=== PATIENT | male | born 1970 | race Caucasian/White ===

== ENCOUNTER 2023-09-12 09:39 | Emergency (ER) | payer BC ==
[2023-09-12 09:58] VITALS: TEMP 97.8
--- NOTE | 2023-09-12 10:20 | ERPHSYRPT ---
- History of Present Illness Time Seen by Provider: 09/12/23 10:20 Historian: patient Exam Limitations: no limitations Patient Subjective Stated Complaint: "nausea and vomiting since wednesday am" Triage Nursing Assessment: AAox3, walked in, c/o vomiting and "mostly diarrhea for 2 days. Unable to take home meds, eat or drink d/t vomitng. Denies pain. Physician History: The patient presents with a sudden onset of gastrointestinal symptoms since Wednesday, including vomiting and diarrhea. The patient is unable to quantify the number of episodes per day, but describes it as too much. There has been no blood in the vomit or diarrhea, and the patient denies any abdominal pain. The patient has been experiencing muscle cramps and has not been able to eat much, only consuming four saltine crackers the day before. The patient has not been taking any new medications and denies any recent upper respiratory symptoms or burning sensation during urination. The symptoms appeared suddenly and have not improved since their onset. The patient has a history of heart issues, blood pressure, cholesterol, anxiety, and heartburn. However, they have not taken any medications for these conditions since Wednesday. The patient is unsure if their heartburn has worsened due to the vomiting, as they have not been able to eat much. The patient's blood pressure appears to be stable at the time of the visit. He denies fever, chills, abd p ain, CP, SOB or swelling. Timing/Duration: day(s) (2) Activities at Onset: rest Pain Radiation: no radiation Severity of Pain-Max: none Severity of Pain-Current: none Modifying Factors: Improves With: nothing Associated Symptoms: diaphoresis, diarrhea, heartburn, loss of appetite, nausea, vomiting, No chest pain, No fever/chills, No neck pain, No shortness of breath Previous symptoms: no prior history Allergies/Adverse Reactions: No Known Drug Allergies Allergy (Unverified 09/12/23 10:28) Home Medications: Duloxetine HCl 30 mg [Cymbalta 30 MG Capsule] 60 mg PO DAILY 09/12/23 [History] Icosapent Ethyl [Vascepa] 2 gm PO BID 09/12/23 [History] Isosorbide Mononitrate 30 mg [Imdur 30 MG] 30 mg PO DAILY 09/12/23 [History] Lisinopril/Hydrochlorothiazide [Lisinopril-Hctz 20-12.5 mg Tab] 1 tab PO DAILY 09/12/23 [History] Metoprolol Succinate 25 mg Xl* [Toprol-Xl 25MG Tablets] 25 mg PO DAILY 09/12/23 [History] Omeprazole/Sodium Bicarbonate [Omeprazole-Bicarb 40-1,100 Cap] 40 mg PO DAILY 09/12/23 [History] Pravastatin Sodium 20 mg PO DAILY 09/12/23 [History] Hx Tetanus, Diphtheria Vaccination/Date Given: No Hx Influenza Vaccination/Date Given: No Travel Risk - International Travel Have you traveled outside of the country in past 3 weeks: No - Coronavirus Screening Symptoms: Vomiting/Diarrhea Close contact with a COVID-19 positive Pt in past 14-21 Days: No - Vaccine Status Have you recieved a Covid-19 vaccination: Yes Industrial [employer]: [employer] - Vaccination Dates Date of 2cond Vaccination (if applicable): 2020 - Review of Systems All Other Systems: Reviewed and Negative (As per HPI) - Past Medical History Pertinent Past Medical History: Yes Neurological History: No Pertinent History ENT History: No Pertinent History Cardiac History: High Cholesterol, Hypertension Respiratory History: No Pertinent History Endocrine Medical History: No Pertinent History Musculoskeletal History: No Pertinent History GI Medical History: GERD History: No Pertinent History Psycho-Social History: Anxiety Male Reproductive Disorders: No Pertinent History - Past Surgical History Past Surgical History: No Cardiac: No Pertinent History Respiratory: No Pertinent History Gastrointestinal: No Pertinent History Genitourinary: No Pertinent History Musculoskeletal: No Pertinent History Male Surgical History: No Pertinent History - Social History Smoking Status: Never smoker Drug Use: none Patient Lives Alone: Yes - Nursing Vital Signs Nursing Vital Signs: Initial Vital Signs Temperature 97.8 F 09/12/23 09:47 Pulse Rate 130 H 09/12/23 09:47 Respiratory Rate 20 09/12/23 09:47 Blood Pressure 92/78 09/12/23 09:47 O2 Sat by Pulse Oximetry 96 09/12/23 09:47 Pain Scale Pain Intensity 0 - Physical Exam General Appearance: no apparent distress, obese Eye Exam: eyes nml inspection Ears, Nose, Throat Exam: normal ENT inspection Neck Exam: normal inspection, supple, full range of motion Respiratory Exam: airway intact, No respiratory distress Cardiovascular Exam: tachycardia, capillary refill <2 sec, No edema Gastrointestinal/Abdomen Exam: soft, normal bowel sounds, No tenderness, No distention, No guarding, No rebound Extremity Exam: normal inspection, No swelling, No tenderness Neurologic Exam: alert, oriented x 3, cooperative Skin Exam: normal color, warm, dry, No rash SpO2 Interpretation: normal SpO2: 96 O2 Delivery: Room Air - Course Nursing assessment & vital signs reviewed: Yes EKG Interpreted by Me: RATE (114), Sinus Tach, prolonged QT interval (592), Other (No specific ST changes) - CT Exams Abdomen/Pelvis CT Interpretation: Tele-radiologist Report (No urolithiasis, cecum and ascending colon show signs of mild colitis, fatty liver, right basal calcified nodule likely old granuloma, gastric fundus thickening) Ordered Tests: Medication Summary Discontinued Medications Generic Name Dose Route Start Last Admin Trade Name Freq PRN Reason Stop Dose Admin Duloxetine HCl 30 mg 09/13/23 11:07 09/12/23 11:21 Duloxetine Hcl 30 Mg Cap PO 09/13/23 11:08 30 mg ONCE ONE Administration Sodium Chloride 1,000 mls @ 999 mls/hr 09/12/23 10:25 09/12/23 11:40 Sodium Chloride 0.9% 1000 Ml IV 09/12/23 11:25 Infused .Q1H1M STA Infusion Sodium Chloride Confirm 09/12/23 10:30 Sodium Chloride 0.9% 1000 Ml Administered 09/12/23 10:31 Dose 1,000 mls @ ud .ROUTE .STK-MED ONE Sodium Chloride 100 mls @ 100 mls/hr 09/12/23 10:52 09/12/23 11:41 Sodium Chloride 0.9% IV 09/12/23 11:51 Not Given .Q1H ONE Sodium Chloride 1,000 mls @ 999 mls/hr 09/12/23 10:56 09/12/23 12:45 Sodium Chloride 0.9% 1000 Ml IV 09/12/23 11:56 Infused .Q1H1M STA Infusion Sodium Chloride Confirm 09/12/23 11:05 Sodium Chloride 0.9% 1000 Ml Administered 09/12/23 11:06 Dose 1,000 mls @ ud .ROUTE .STK-MED ONE Sodium Chloride 1,000 mls @ 150 mls/hr 09/12/23 13:00 09/12/23 12:49 Sodium Chloride 0.9% 1000 Ml IV 10/12/23 12:59 150 mls/hr .Q6H40M TERI Administration Ceftriaxone Sodium/Dextrose 2 g in 50 mls @ 100 mls/hr 09/12/23 13:10 09/12/23 13:19 Rocephin 2 Gm-D5w 50ml Bag IV 09/12/23 13:39 100 mls/hr STAT STA 100 mls/hr Administration Ceftriaxone Sodium/Dextrose Confirm 09/12/23 13:18 Rocephin 2 Gm-D5w 50ml Bag Administered 09/12/23 13:19 Dose 2 g in 50 mls @ ud IV .STK-MED ONE Sodium Chloride Confirm 09/12/23 12:48 Sodium Chloride 0.9% 1000 Ml Administered 09/12/23 12:49 Dose 1,000 mls @ ud .ROUTE .STK-MED ONE Metoprolol Succinate 25 mg 09/13/23 11:07 09/12/23 11:21 Metoprolol Succinate 25 Mg Xl Tab PO 09/13/23 11:08 25 mg ONCE ONE Administration Metoprolol Succinate Confirm 09/12/23 11:09 Metoprolol Succinate 25 Mg Xl Tab Administered 09/12/23 11:10 Dose 25 mg .ROUTE .STK-MED ONE Ondansetron HCl 4 mg 09/12/23 10:25 09/12/23 10:32 Ondansetron Hcl 4 Mg/2 Ml Vial IV 09/12/23 10:26 4 mg STAT ONE Administration Ondansetron HCl Confirm 09/12/23 10:29 Ondansetron Hcl 4 Mg/2 Ml Vial Administered 09/12/23 10:30 Dose 4 mg .ROUTE .STK-MED ONE Pantoprazole Sodium 40 mg 09/12/23 10:26 09/12/23 10:32 Pantoprazole 40 Mg Vial IV 09/12/23 10:27 40 mg STAT ONE Administration Pantoprazole Sodium Confirm 09/12/23 10:30 Pantoprazole 40 Mg Vial Administered 09/12/23 10:31 Dose 40 mg IV .STK-MED ONE Lab/Rad Data: Laboratory Result Diagrams 09/12/23 10:30 09/12/23 10:30 Laboratory Results 10/29/23 10/29/23 10/29/23 Range/Units 12:54 12:09 10:45 WBC (4.0-10.5) x10^3/uL RBC (4.1-5.6) x10^6/uL Hgb (12.5-18.0) g/dL Hct (42-50) % MCV (78-100) fL MCH (26-32) pg MCHC (32-36) g/dL RDW (11.5-14.0) % Plt Count (150-450) x10^3/uL MPV (7.5-11.0) fL Segmented Neutrophils (36.-66.) % Band Neutrophils (0.0-2.0) % Lymphocytes (Manual) (24-44) % Monocytes (Manual) (0.0-12.0) % Metamyelocytes % Platelet Estimate (NORMAL) RBC Morphology pO2/FiO2 Ratio 21.0 % VBG pH 7.29 L (7.32-7.42) VBG pCO2 at Pat Temp 38 L (42-55) mm/Hg VBG pO2 at Pat Temp 26 (25-40) mm/Hg VBG HCO3 18.3 L (22-28) meq/L VBG O2 Sat (Nikki) 38.3 L (95-100) VBG Base Excess -7.6 L (-2.0-2.0) VBG Hemoglobin 16.9 VBG Carboxyhemoglobin 2.0 (0.0-6.9) % T HGB POC Potassium 3.6 (3.5-5.1) Sodium (137-145) mmol/L Potassium (3.5-5.1) mmol/L Chloride (98-107) mmol/L Carbon Dioxide (22-30) mmol/L Anion Gap (5-15) MEQ/L BUN (9-20) mg/dL Creatinine (0.66-1.25) mg/dL Estimated GFR ML/MIN Glucose (74-106) mg/dL Hemoglobin A1c (4.5-6.0) % Lactic Acid 2.8 H (0.4-2.0) Calcium (8.4-10.2) mg/dL Phosphorus (2.5-4.5) mg/dL Magnesium (1.6-2.3) mg/dL Total Bilirubin (0.2-1.3) mg/dL AST (17-59) U/L ALT (0-50) U/L Alkaline Phosphatase (38-126) U/L Serum Total Protein (6.3-8.2) g/dL Albumin (3.5-5.0) g/dL Lipase (23-300) U/L Urine Color Dark Yellow (Yellow) Urine Appearance Turbid A (Clear) Urine pH 5.0 (4.6-8.0) Ur Specific [place] 1.025 (1.005-1.030) Urine Protein 100 A (Negative) Urine Glucose (UA) 100 A (Negative) mg/dL Urine Ketones Trace A (Negative) Urine Blood Moderate A (Negative) Urine Nitrite Negative (Negative) Urine Bilirubin Moderate A (Negative) Urine Urobilinogen 1.0 A (0.2) mg/dL Ur Leukocyte Esterase Trace A (Negative) U Hyaline Cast (Auto) None Seen (0-2) /LPF Urine Microscopic RBC 0-2 (0-5) /HPF Urine Microscopic WBC 3-5 (0-5) /HPF Ur Epithelial Cells Few (None Seen) /HPF Urine Bacteria Many A (None Seen) /HPF Urine Culture Reflexed YES (NO) Influenza Type A Ag (NEGATIVE) Influenza Type B Ag (NEGATIVE) RSV (PCR) (NEGATIVE) SARS-CoV-2 (PCR) (NEGATIVE) 09/12/23 09/12/23 09/12/23 Range/Units 10:45 10:35 10:30 WBC (4.0-10.5) x10^3/uL RBC (4.1-5.6) x10^6/uL Hgb (12.5-18.0) g/dL Hct (42-50) % MCV (78-100) fL MCH (26-32) pg MCHC (32-36) g/dL RDW (11.5-14.0) % Plt Count (150-450) x10^3/uL MPV (7.5-11.0) fL Segmented Neutrophils (36.-66.) % Band Neutrophils (0.0-2.0) % Lymphocytes (Manual) (24-44) % Monocytes (Manual) (0.0-12.0) % Metamyelocytes % Platelet Estimate (NORMAL) RBC Morphology pO2/FiO2 Ratio % VBG pH (7.32-7.42) VBG pCO2 at Pat Temp (42-55) mm/Hg VBG pO2 at Pat Temp (25-40) mm/Hg VBG HCO3 (22-28) meq/L VBG O2 Sat (Nikki) (95-100) VBG Base Excess (-2.0-2.0) VBG Hemoglobin VBG Carboxyhemoglobin (0.0-6.9) % T HGB POC Potassium (3.5-5.1) Sodium (137-145) mmol/L Potassium (3.5-5.1) mmol/L Chloride (98-107) mmol/L Carbon Dioxide (22-30) mmol/L Anion Gap (5-15) MEQ/L BUN (9-20) mg/dL Creatinine (0.66-1.25) mg/dL Estimated GFR ML/MIN Glucose (74-106) mg/dL Hemoglobin A1c (4.5-6.0) % Lactic Acid 4.8 H (0.4-2.0) Calcium (8.4-10.2) mg/dL Phosphorus 11.7 H (2.5-4.5) mg/dL Magnesium (1.6-2.3) mg/dL Total Bilirubin (0.2-1.3) mg/dL AST (17-59) U/L ALT (0-50) U/L Alkaline Phosphatase (38-126) U/L Serum Total Protein (6.3-8.2) g/dL Albumin (3.5-5.0) g/dL Lipase (23-300) U/L Urine Color (Yellow) Urine Appearance (Clear) Urine pH (4.6-8.0) Ur Specific [place] (1.005-1.030) Urine Protein (Negative) Urine Glucose (UA) (Negative) mg/dL Urine Ketones (Negative) Urine Blood (Negative) Urine Nitrite (Negative) Urine Bilirubin (Negative) Urine Urobilinogen (0.2) mg/dL Ur Leukocyte Esterase (Negative) U Hyaline Cast (Auto) (0-2) /LPF Urine Microscopic RBC (0-5) /HPF Urine Microscopic WBC (0-5) /HPF Ur Epithelial Cells (None Seen) /HPF Urine Bacteria (None Seen) /HPF Urine Culture Reflexed (NO) Influenza Type A Ag NEGATIVE (NEGATIVE) Influenza Type B Ag NEGATIVE (NEGATIVE) RSV (PCR) NEGATIVE (NEGATIVE) SARS-CoV-2 (PCR) NEGATIVE (NEGATIVE) 09/12/23 09/12/23 09/12/23 Range/Units 10:30 10:30 10:30 WBC (4.0-10.5) x10^3/uL RBC (4.1-5.6) x10^6/uL Hgb (12.5-18.0) g/dL Hct (42-50) % MCV (78-100) fL MCH (26-32) pg MCHC (32-36) g/dL RDW (11.5-14.0) % Plt Count (150-450) x10^3/uL MPV (7.5-11.0) fL Segmented Neutrophils (36.-66.) % Band Neutrophils (0.0-2.0) % Lymphocytes (Manual) (24-44) % Monocytes (Manual) (0.0-12.0) % Metamyelocytes % Platelet Estimate (NORMAL) RBC Morphology pO2/FiO2 Ratio % VBG pH (7.32-7.42) VBG pCO2 at Pat Temp (42-55) mm/Hg VBG pO2 at Pat Temp (25-40) mm/Hg VBG HCO3 (22-28) meq/L VBG O2 Sat (Nikki) (95-100) VBG Base Excess (-2.0-2.0) VBG Hemoglobin VBG Carboxyhemoglobin (0.0-6.9) % T HGB POC Potassium (3.5-5.1) Sodium 132 L (137-145) mmol/L Potassium 3.6 (3.5-5.1) mmol/L Chloride 86 L (98-107) mmol/L Carbon Dioxide 14 L* (22-30) mmol/L Anion Gap 36.2 H (5-15) MEQ/L BUN 58 H (9-20) mg/dL Creatinine 7.44 H (0.66-1.25) mg/dL Estimated GFR 8.1 ML/MIN Glucose 191 H (74-106) mg/dL Hemoglobin A1c 6.09 H (4.5-6.0) % Lactic Acid (0.4-2.0) Calcium 9.6 (8.4-10.2) mg/dL Phosphorus (2.5-4.5) mg/dL Magnesium 1.5 L (1.6-2.3) mg/dL Total Bilirubin 1.10 (0.2-1.3) mg/dL AST 68 H (17-59) U/L ALT 45 (0-50) U/L Alkaline Phosphatase 117 (38-126) U/L Serum Total Protein 10.1 H (6.3-8.2) g/dL Albumin 4.6 (3.5-5.0) g/dL Lipase 38 (23-300) U/L Urine Color (Yellow) Urine Appearance (Clear) Urine pH (4.6-8.0) Ur Specific [place] (1.005-1.030) Urine Protein (Negative) Urine Glucose (UA) (Negative) mg/dL Urine Ketones (Negative) Urine Blood (Negative) Urine Nitrite (Negative) Urine Bilirubin (Negative) Urine Urobilinogen (0.2) mg/dL Ur Leukocyte Esterase (Negative) U Hyaline Cast (Auto) (0-2) /LPF Urine Microscopic RBC (0-5) /HPF Urine Microscopic WBC (0-5) /HPF Ur Epithelial Cells (None Seen) /HPF Urine Bacteria (None Seen) /HPF Urine Culture Reflexed (NO) Influenza Type A Ag (NEGATIVE) Influenza Type B Ag (NEGATIVE) RSV (PCR) (NEGATIVE) SARS-CoV-2 (PCR) (NEGATIVE) 09/12/23 Range/Units 10:30 WBC 8.3 (4.0-10.5) x10^3/uL RBC 4.79 (4.1-5.6) x10^6/uL Hgb 15.8 (12.5-18.0) g/dL Hct 44.9 (42-50) % MCV 93.7 (78-100) fL MCH 33.0 H (26-32) pg MCHC 35.2 (32-36) g/dL RDW 13.1 (11.5-14.0) % Plt Count 335 (150-450) x10^3/uL MPV 9.9 (7.5-11.0) fL Segmented Neutrophils 65 (36.-66.) % Band Neutrophils 7 H (0.0-2.0) % Lymphocytes (Manual) 17 L (24-44) % Monocytes (Manual) 9 (0.0-12.0) % Metamyelocytes 2 % Platelet Estimate NORMAL (NORMAL) RBC Morphology NORMAL pO2/FiO2 Ratio % VBG pH (7.32-7.42) VBG pCO2 at Pat Temp (42-55) mm/Hg VBG pO2 at Pat Temp (25-40) mm/Hg VBG HCO3 (22-28) meq/L VBG O2 Sat (Nikki) (95-100) VBG Base Excess (-2.0-2.0) VBG Hemoglobin VBG Carboxyhemoglobin (0.0-6.9) % T HGB POC Potassium (3.5-5.1) Sodium (137-145) mmol/L Potassium (3.5-5.1) mmol/L Chloride (98-107) mmol/L Carbon Dioxide (22-30) mmol/L Anion Gap (5-15) MEQ/L BUN (9-20) mg/dL Creatinine (0.66-1.25) mg/dL Estimated GFR ML/MIN Glucose (74-106) mg/dL Hemoglobin A1c (4.5-6.0) % Lactic Acid (0.4-2.0) Calcium (8.4-10.2) mg/dL Phosphorus (2.5-4.5) mg/dL Magnesium (1.6-2.3) mg/dL Total Bilirubin (0.2-1.3) mg/dL AST (17-59) U/L ALT (0-50) U/L Alkaline Phosphatase (38-126) U/L Serum Total Protein (6.3-8.2) g/dL Albumin (3.5-5.0) g/dL Lipase (23-300) U/L Urine Color (Yellow) Urine Appearance (Clear) Urine pH (4.6-8.0) Ur Specific [place] (1.005-1.030) Urine Protein (Negative) Urine Glucose (UA) (Negative) mg/dL Urine Ketones (Negative) Urine Blood (Negative) Urine Nitrite (Negative) Urine Bilirubin (Negative) Urine Urobilinogen (0.2) mg/dL Ur Leukocyte Esterase (Negative) U Hyaline Cast (Auto) (0-2) /LPF Urine Microscopic RBC (0-5) /HPF Urine Microscopic WBC (0-5) /HPF Ur Epithelial Cells (None Seen) /HPF Urine Bacteria (None Seen) /HPF Urine Culture Reflexed (NO) Influenza Type A Ag (NEGATIVE) Influenza Type B Ag (NEGATIVE) RSV (PCR) (NEGATIVE) SARS-CoV-2 (PCR) (NEGATIVE) - Progress Progress Note: The cause of the patients symptoms is not clear. He appears unwell overall. Given History and Exam there does not appear to be an emergent cause of the symptoms such as small bowel obstruction, coronary syndrome, bowel ischemia, DKA, pancreatitis, appendicitis, other acute abdomen or other emergent problem. Patient's nausea has significantly improved with Zofran and IVF, but his labs re vealed acute renal failure with a Cr of 7.44 and a GFR of 8. He has no previous hx of kidney disease. He does have a hx of prediabetes that he has been closely following, but is on no medications. His labs were also significant for a pH of 7.29, HCO3 14, BUN 58, Lactate 4.8, Mg 1.5, AST 68 and a UA that showed turbid appearance, 100 protein, 100 glucose, trace ketones, moderate blood, trace LE, many bacteria and urobilinogen. Patient's glucose was less than 200 and A1c was 6.09 so DKA was unlikely cause of his metabolic acidosis. After IVF his lactate improved to 2.8. His EKG and Troponin were negative for cardiac etiology of his sxs. CT abd/pelvis was obtained to r/o an obstructing urethral stone and to evaluate for any other potential cause to his acute renal failure, but the exam was largely unremarkable. Decision was made to transfer to [facility] for higher level of care. Dr. Butler at [facility] accepted patient for transfer at [address] completed. 09/13/23 16:56 Discussed with : Other (Luke) Will see patient in: ED ([facility]) Medical Desision Making - Discussion of managment Care discussed with:: specialist Reviewed:: Test results Agreed on:: Treatment plan Will see patient: in ED - Diagnostic Testing Diagnostic test were ordered, analyzed, and reviewed by me: Yes Radiological Interpretation: Interpreted by me, Reviewed by me, Teleradiologist Report - Risk of complications The pt has a mod risk of morbidity or mortality based on: Need for prescription drug management The pt has a high risk of morbidity or mortality based on: Decision regarding hospitilization or escalation of hosp level of care - Departure Departure Disposition: Transfer (Former[facility] ER) Clinical Impression: Acute renal failure, Metabolic acidosis, Elevated lactic acid level, Hyperglycemia, Nausea and vomiting, Diarrhea, Dehydration, Tachycardia, Elevated AST (SGOT) Condition: Stable Critical Care Time: No Referrals: ZAIRA CASTILLO NP [Primary Care Provider] - Follow up/PCP as directed Instructions: Kidney Failure
[2023-09-12] MEDS ORDERED: Sodium Chloride 0.9% 1000 ML 1,000 ML IV STA ×2 (10:25→10:56)
[2023-09-12] MEDS ORDERED: Zofran 4 MG/2 ML VIAL IV ONE (10:25)
[2023-09-12] MEDS ORDERED: PROTONIX 40 MG IV IV ONE ×2 (10:26→10:30)
[2023-09-12] MEDS ORDERED: Zofran 4 MG/2 ML VIAL ONE (10:29)
[2023-09-12] MEDS ORDERED: Sodium Chloride 0.9% 1000 ML 1,000 ML ONE ×3 (10:30→12:48)
[2023-09-12 10:50] LABS: Hematocrit 44.9 % (42-50); Hemoglobin 15.8 g/dL (12.5-18.0); Mean Cell Volume 93.7 fL (78-100); Mean Corpuscular Hgb Concent. 35.2 g/dL (32-36); Mean Platelet Volume 9.9 fL (7.5-11.0); Platelet Count 335 x10^3/uL (150-450); Red Blood Count 4.79 x10^6/uL (4.1-5.6); Red Cell Distribution Width 13.1 % (11.5-14.0); White Blood Count 8.3 x10^3/uL (4.0-10.5)
[2023-09-12] MEDS ORDERED: Sodium Chloride 0.9% 100 ML IV ONE (10:52)
[2023-09-12 10:55] LABS: VBG BASE EXCESS -7.6 (-2.0-2.0); VBG HCO3- 18.3 meq/L (22-28); VBG HEMOGLOBIN 16.9; VBG O2 SATURATION 38.3 (95-100); VBG POTASSIUM 3.6 (3.5-5.1); VBG pH 7.29 (7.32-7.42)
[2023-09-12] MEDS ORDERED: Toprol-Xl 25MG Tablets ONE (11:09)
[2023-09-12 11:10] LABS: ALBUMIN 4.6 g/dL (3.5-5.0); ANION GAP 36.2 MEQ/L (5-15); BILIRUBIN,TOTAL 1.1 mg/dL (0.2-1.3); Calcium 9.6 mg/dL (8.4-10.2); Creatinine 1 7.44 mg/dL (0.66-1.25); EST GLOMERULAR FILTRATION RATE 8.1 ML/MIN; Potassium 3.6 mmol/L (3.5-5.1); Total Protein 10.1 g/dL (6.3-8.2)
[2023-09-12 11:30] LABS: BAND 7 % (0.0-2.0); Lymphocytes 17 % (24-44); Metamyelocyte 2 %; Monocyte 9 % (0.0-12.0); Neutrophils 65 % (36.-66.); Platelet Estimate NORMAL (NORMAL); Total Cells Counted 100
[2023-09-12 11:35] LABS: INFLUENZA A NEGATIVE (NEGATIVE); INFLUENZA B NEGATIVE (NEGATIVE); RESPIRATORY SYNCTIAL VIRUS NEGATIVE (NEGATIVE); SARS-CoV-2 Xpert Express NEGATIVE (NEGATIVE)
[2023-09-12 12:09] VITALS: RESP 20
[2023-09-12 12:25] LABS: Appearance Turbid (Clear); Bilirubin Moderate (Negative); Blood Moderate (Negative); Glucose, Urine 100 mg/dL (Negative); Ketones Trace (Negative); Leukocyte Esterase Trace (Negative); Nitrite Negative (Negative); Protein,Urine Dip 100 (Negative); Specific Gravity 1.025 (1.005-1.030)
[2023-09-12 12:30] LABS: RBC 0-2 /HPF (0-5)
[2023-09-12 12:31] LABS: ADD URINE CULTURE? YES (NO); Bacteria Many /HPF (None Seen); Epithelial Cells Few /HPF (None Seen); Hyaline Casts None Seen /LPF (0-2)
[2023-09-12] MEDS ORDERED: Sodium Chloride 0.9% 1000 ML 1,000 ML IV SCH (13:00)
--- NOTE | 2023-09-12 13:01 | XRAY ---
CLINICAL HISTORY:anuric, acute renal failure, N/V COMPARISON:None. TECHNIQUE:CT scan of the abdomen and pelvis without intravenous contrast administration. FINDINGS: Suspected focal soft tissue thickening at the gastric fundus. There is fat stranding around the cecum and ascending colon with small pericolic lymph nodes. The liver is of average size, regular contour and displays diffuse fatty changes with no focal lesion could be detected on a non-contrast basis. No intra hepatic biliary radical dilatation. The GB appears unremarkable. The spleen is of average size and shape with homogeneous parenchyma and no focal lesion could be noted on a non-contrast basis. Both kidneys are of normal size, shape and parenchymal thickness with no stones, back pressure changes or space-occupying lesions on a non-contrast basis. The other retroperitoneal structures including the pancreas and adrenal glands are grossly within normal limits. No significant lymph fuad enlargement or ascetic fluid collection. The prostate is of average size and shape. Normal filling of the urinary bladder with no stones, masses, or diverticula. Bone window settings showed degenerative changes of the lower thoracic and lumbar spine, no evidence of fractures or destructive lesions. Lung window settings showed a calcified nodule 9 mm at the posterior basal segment of the right lower lung lobe. IMPRESSION: No urolithiasis or back pressure changes. Cecum and ascending colon pericolic fat stranding with small pericolic lymph nodes could be incidental findings or due to mild colitis. Clinical correlation is advised. Fatty liver. Right basal calcified nodule likely old granuloma. Suspected focal soft tissue thickening at the gastric fundus, clinical/endoscopy correlation is advised. Electronically Signed by: Catalina Khan MD. (09/12/2023 11:58:32 SALON LEADER)
[2023-09-12] MEDS ORDERED: ROCEPHIN 2 Gm-D5w 50ML BAG** 2 G/50 ML IVPB IV STA (13:10)
[2023-09-12] MEDS ORDERED: ROCEPHIN 2 Gm-D5w 50ML BAG** 2 G/50 ML IVPB IV ONE (13:18)
[2023-09-12 13:31] VITALS: O2SAT 96
[2023-09-12 13:50] VITALS: BP 132/86; PULSE 100
[2023-09-13] MEDS ORDERED: Cymbalta 30 MG Capsule PO ONE (11:07)
[2023-09-13] MEDS ORDERED: Toprol-Xl 25MG Tablets PO ONE (11:07)
== END 2023-09-12 13:40 | disposition short-term general hospital (02) ==
LOC: ED 09:39
DX: N17.9 Acute kidney failure, unspecified (principal); E87.20 Acidosis, unspecified; R79.89 Other specified abnormal findings of blood chemistry; R73.9 Hyperglycemia, unspecified; R11.2 Nausea with vomiting, unspecified; R19.7 Diarrhea, unspecified; E86.0 Dehydration; R00.0 Tachycardia, unspecified; R74.01 Elevation of levels of liver transaminase levels; E78.5 Hyperlipidemia, unspecified; I10 Essential (primary) hypertension; Z79.899 Other long term (current) drug therapy
CPT/HCPCS: 0241U; 36000; 36415; 74176; 80053; 81001; 82805; 83036; 83605; 83690; 83735; 84100; 85025; 87086; 93005; 96360; 96361; 96365; 96374; 96375; 99285; 87077; 87186; J0696; J2405; A9270-GY